=== PATIENT | female | born 1960 | race Caucasian/White ===

== ENCOUNTER 2018-06-25 10:53 | Emergency (ER) | payer MEDICARE, MEDICAID ==
[~2018-06-25] VITALS: Ht 167.6 cm; Wt 88.5 kg
[2018-06-25] MEDS ORDERED: UNOBMED (11:06)
[2018-06-25] MEDS ORDERED: IBUPROFEN600 MG ORAL (12:13)
--- NOTE | 2018-06-25 12:21 | Diagnostic Imaging Report ---
Indication: Pain status post injury Technique: XRAY Ankle Compl Min 3v L Comparison: None Findings: Bone mineralization within normal limits. There is soft tissue swelling about the medial malleolus. There is a small crescentic focus of mineralization adjacent to the medial malleolus which likely represents a small avulsion fracture, especially given soft tissue swelling and history of trauma. No additional acute fracture identified. Ankle mortise is intact. There is a plantar calcaneal enthesophyte. No radiopaque foreign body. Impression: Findings suggestive of a small avulsion fracture of the medial malleolus as above. Ankle mortise intact.
--- NOTE | 2018-06-25 12:24 | Diagnostic Imaging Report ---
Indication: Pain status post trauma Technique: XRAY Foot Complete L Comparison: None Findings: Bone mineralization within normal limits. There is an acute, mildly comminuted intra-articular fracture of the base of the fifth metatarsal. There is mild distraction some fracture fragments. There is overlying soft tissue swelling. Lisfranc alignment of the foot appears maintained. No additional acute fracture identified. There is a plantar calcaneal enthesophyte. No radiopaque foreign body. Impression: Acute fracture of the base of the fifth metatarsal
[2018-06-25 12:29] VITALS: BP 135/84
--- NOTE | 2018-06-25 13:05 | Emergency Room Report ---
History of Present Illness General Chief Complaint: Lower Extremity Injury Source: Patient Present Illness HPI Patient presents with reports of pain to the left foot patient had a fall Down some stairs yesterday As the pain persisted She presents to the ER Localized to the lateral aspect of her foot Denies any knee pain denies any loss of consciousness Pain is 6 out of 10 worse with bearing weight Allergies: Coded Allergies: PENICILLINS (Verified Allergy, Unknown, 06/25/18) Patient History Past Medical History: see triage record Pertinent Family History: none Now: No Reviewed Nursing Documentation: PMH: Agreed; PSxH: Agreed Nursing Documentation-PMH Hx Cardiac Problems: Yes - thyroidectomy Hx Hypertension: Yes Review of Systems All Other Systems: negative except mentioned in HPI Physical Exam Vital Signs Date Time Temp Pulse Resp B/P (MAP) Pulse Ox O2 Delivery O2 Flow Rate FiO2 06/25/18 11:00 98.1 76 18 127/74 95 06/25/18 12:29 Room Air Sp02 EP Interpretation: reviewed, normal General Appearance: well appearing, no apparent distress Head: normocephalic, atraumatic Eyes: bilateral eye PERRL, bilateral eye EOMI ENT: hearing grossly normal, normal pharynx Neck: supple Respiratory: lungs clear, no retraction Cardiovascular #1: regular rate, rhythm Musculoskeletal: swelling - Tenderness palpated to the lateral aspect of the left foot also some at the lateral malleolus region Neurologic: alert, oriented x3, responsive Skin: other - Some swelling Lymphatic: no adenopathy Procedures Splinting Splinting : Consent: Verbal Location: Left foot Pre-Made Type: Posterior short leg Hand-Made Type: plaster Splint: poserior short Pre-Proc Neuro Vasc Exam: normal Post-Proc Neuro Vasc Exam: normal Patient Tolerated: Well Complications: None Medical Decision Making Diagnostic Impression: Primary Impression: foot fracture ER Course Given the patient's history and presentation imaging studies were obtained they do reveal proximal foot fracture on the left side patient had a splint applied as noted Remains neurovascularly intact and requires close outpatient follow-up Other X-Ray Diagnostic Results Other X-Ray Diagnostic Results #1: X-Ray ordered: Left foot # of Views/Limited Vs Complete: 3 View Indication: Pain EP Interpretation: Yes Interpretation: no dislocation, no soft tissue swelling, other - Fracture base fifth metatarsal Impression: Other - Acute fracture Electronically Signed by: Amada Cramer DO Other X-Ray Diagnostic Results #2: X-Ray ordered: Left ankle # of Views/Limited Vs Complete: 3 View Indication: Pain EP Interpretation: Yes Interpretation: no dislocation, no soft tissue swelling, other - Questionable medial malleolus or chip fracture Impression: Other - Questionable chip fracture Electronically Signed by: Amada Cramer DO Last Vital Signs Date Time Temp Pulse Resp B/P (MAP) Pulse Ox O2 Delivery O2 Flow Rate FiO2 06/25/18 12:29 97.5 88 12 135/84 98 Room Air Status: improved Disposition: HOME, SELF-CARE Condition: Improved Scripts Ibuprofen* (MOTRIN*) 600 Mg Tablet 600 MG ORAL THREE TIMES A DAY, #20 TAB 0 Refills Prov: Amada Cramer DO 06/25/18 Referrals: NON PHYSICIAN (PCP) Patient Instructions: Toe Fracture, [id number] Additional Instructions: Patient is provided with the discharge instructions notified to follow up with primary doctor in the next 2-3 days otherwise return to the er with any worsening symptoms. This fracture will require further intervention such as a cast. If your physician is not able to provide you with appropriate referral he may return to the emergency room, Please note that this report is being documented using [employer] technology. This can lead to erroneous entry secondary to incorrect interpretation by the dictating instrument. Amada Cramer DO Jun 25, 2018 13:05
== END 2018-06-25 12:31 | disposition home or self-care (01) ==
LOC: EMR 11:18
DX: S92.352A Displaced fracture of fifth metatarsal bone, left foot, initial encounter for closed fracture (principal); W10.9XXA Fall (on) (from) unspecified stairs and steps, initial encounter; Y92.9 Unspecified place or not applicable; I10 Essential (primary) hypertension; Z88.0 Allergy status to penicillin
CPT/HCPCS: 29515; 99284